=== PATIENT | male | born 1960 ===

== ENCOUNTER 2016-10-18 12:10 | Emergency (ER) | payer MEDICAID ==
[2016-10-18] MEDS ORDERED: Sodium Chloride 0.9% 1,000 ML IV STA (12:42)
--- NOTE | 2016-10-18 12:49 | ED PDOC ---
HPI: Chest Pain Time Seen by Provider: 10/18/16 12:36 Chief Complaint (Nursing): Palpitations Chief Complaint (Provider): Palpitations History Per: Patient History/Exam Limitations: no limitations Onset/Duration Of Symptoms: Days (x3) Current Symptoms Are (Timing): Still Present Additional Complaint(s): Jacqueline Sarmiento is a 56 year old male with no past medical history that presents to the ED with a chief complaint of a mild headache that he has been experiencing for the past three days, as well as mild chest pain and palpitations that began last night. Patient reports that he was partying from Monday through Monday morning, and was drinking a lot of alcohol. He states that he has been unable to sleep for the past three days as well. Patient says that he took two Advils this morning in an attempt to relieve his headache. He denies any breathing problems, nausea, vomiting, diarrhea, suicidal ideation, homicidal ideation, weakness, numbness, or vision change. Past Medical History Reviewed: Historical Data, Nursing Documentation, Vital Signs Vital Signs: Last Vital Signs Temp 98.5 F 10/18/16 12:25 Pulse 74 10/18/16 12:25 Resp 16 10/18/16 12:25 BP 143/88 10/18/16 12:25 Pulse Ox 99 10/18/16 12:54 - Medical History PMH: No Chronic Diseases - Surgical History Surgical History: No Surg Hx - Family History Family History: States: Unknown Family Hx - Social History Drugs: Denies - Allergies Allergies/Adverse Reactions: Allergies Allergy/AdvReac Type Severity Reaction Status Date / Time No Known Allergies Allergy Verified 10/18/16 12:21 Review of Systems ROS Statement: Except As Marked, All Systems Reviewed And Found Negative Constitutional: Positive for: Other (Patient has been unable to sleep for the past three days) Eyes: Negative for: Vision Change Cardiovascular: Positive for: Chest Pain (mild), Palpitations Respiratory: Negative for: Shortness of Breath Gastrointestinal: Negative for: Nausea, Vomiting, Abdominal Pain, Diarrhea Musculoskeletal: Negative for: Leg Pain Neurological: Positive for: Headache (mild). Negative for: Weakness, Numbness Psych: Negative for: Suicidal ideation (denies both suicidal ideation and homicidal ideation ) Physical Exam - Reviewed Nursing Documentation Reviewed: Yes Vital Signs Reviewed: Yes - Physical Exam Appears: Positive for: Non-toxic, No Acute Distress Head Exam: Positive for: ATRAUMATIC, NORMOCEPHALIC Skin: Positive for: Normal Color, Warm Eye Exam: Positive for: Normal appearance, EOMI, PERRL ENT: Positive for: Normal ENT Inspection Neck: Positive for: Normal, Painless ROM, Supple Cardiovascular/Chest: Positive for: Regular Rate, Rhythm. Negative for: Murmur Respiratory: Positive for: Normal Breath Sounds. Negative for: Wheezing Gastrointestinal/Abdominal: Positive for: Normal Exam, Soft. Negative for: Tenderness Back: Positive for: Normal Inspection. Negative for: L CVA Tenderness, R CVA Tenderness Extremity: Positive for: Normal ROM. Negative for: Tenderness, Pedal Edema, Swelling Neurologic/Psych: Positive for: Alert, warehouse production worker II-XII, Oriented. Negative for: Motor/Sensory Deficits - Laboratory Results Result Diagrams: 10/18/16 12:20 10/18/16 13:00 Interpretation Of Abn Labs: 3.5 K - ECG ECG: Positive for: Interpreted By Me, Viewed By Me ECG Rhythm: Positive for: Normal QRS, Normal ST Segment, Sinus Rhythm O2 Sat by Pulse Oximetry: 99 (RA) Pulse Ox Interpretation: Normal - Radiology X-Ray: Read By Radiologist X-Ray Interpretation: No Acute Disease - Progress ED Course And Treament: 1456: Stable. AAOx3. Pain free. Tolerated PO. Fu with pcp. Medical Decision Making Medical Decision Making: Impression: Chest Pain/Headache Plan: * EKG * Chest X-Ray * CBC * CMP * Alcohol * Troponin I * PTT * PT * Urine Drug Screen * Sodium Chloride 1000 mLs at 1000 mLs/hr * Reevaluation Scribe Attestation: Documented by Ivone Su, acting as a scribe for Moisés Langley MD. Provider Scribe Attestation: All medical record entries made by the Scribe were at my direction and personally dictated by me. I have reviewed the chart and agree that the record accurately reflects my personal performance of the history, physical exam, medical decision making, and the department course for this patient. I have also personally directed, reviewed, and agree with the discharge instructions and disposition. Disposition - Clinical Impression Clinical Impression: Insomnia, Chest pain, Alcohol abuse, Hypokalemia - Patient ED Disposition Is Patient to be Admitted: No Counseled Patient/Family Regarding: Studies Performed, Diagnosis, Need For Followup - Disposition Referrals: [facility] [Outside] - 10/19/16 Disposition: Routine/Home Disposition Time: 14:52 Condition: FAIR Additional Instructions: Return if not better in 3 days. Instructions: Chest Pain (ED), Abuse of Alcohol (ED), Palpitations (ED), Insomnia (ED), Hypokalemia (ED) - Pt Status Changed To: Hospital Disposition Of: Inpatient - Admit Certification Admit to Inpatient:: After my assessment, the patient will require hospitalization for at least two midnights. This is because of the severity of symptoms shown, intensity of services needed, and/or the medical risk in this patient being treated as an outpatient. - POA Present On Arrival: None
[2016-10-18 13:32] LABS: BASO # 0.1 K/uL (0.0-0.2); BASO % 1.9 % (0.0-2.0); EOS # 0.1 K/uL (0.0-0.7); HEMOGLOBIN 12.5 g/dL (12.0-18.0); LYMPH # 1.5 K/uL (1.0-4.3); LYMPH % 26.5 % (20.0-40.0); MEAN CELL VOLUME 98.7 fl (80.0-94.0); MEAN CORPUSCULAR HEMOGLOBIN 33.7 pg (27.0-31.0); MEAN CORPUSCULAR HGB CONC 34.2 g/dL (33.0-37.0); MONO # 0.7 K/uL (0.0-0.8); NEUT # 3.2 K/uL (1.8-7.0); NEUT % 56.6 % (50.0-75.0); NRBC % 0.2 % (0.0-0.0); RBC 3.7 Mil/uL (4.40-5.90); RED CELL DISTRIBUTION WIDTH 14.7 % (11.5-14.5); WHITE BLOOD COUNT 5.6 K/uL (4.8-10.8)
--- NOTE | 2016-10-18 13:50 | RAD ---
HISTORY: pain COMPARISON: None available TECHNIQUE: Chest, one view. FINDINGS: Examination limited by habitus. LUNGS: No focal consolidation. Please note that chest x-ray has limited sensitivity for the detection of pulmonary masses. PLEURA: No significant pleural effusion identified. No definite pneumothorax . CARDIOVASCULAR: The cardiomediastinal silhouette appears within normal limits of size. OSSEOUS STRUCTURES: No acute osseous abnormality identified. VISUALIZED UPPER ABDOMEN: Unremarkable. OTHER FINDINGS: None. IMPRESSION: No focal consolidation, significant pleural effusion, or definite pneumothorax identified.
[2016-10-18 13:55] LABS: ALBUMIN 4.7 g/dL (3.5-5.0)
[2016-10-18 13:58] LABS: ALB/GLOB RATIO 1.3 (1.0-2.1); ALT/SGPT 36 U/L (21-72); AST/SGOT 60 U/L (17-59); BLOOD UREA NITROGEN 16 mg/dl (9-20); CALCIUM 10.3 mg/dL (8.4-10.2); GFR AFRICAN-AMERICAN > 60; GFR NON-AFRICAN AMERICAN > 60
[2016-10-18 14:01] LABS: INR 1.2 (0.9-1.2); PARTIAL THROMBOPLASTIN TIME 31.5 Seconds (25.6-37.1); PROTHROMBIN TIME 13.5 Seconds (9.8-13.1)
[2016-10-18] MEDS ORDERED: Potassium Chloride 20 mEq ER Tab PO STA (14:41)
[2016-10-18 15:19] VITALS: BP 126/78; RESP 14; TEMP 98; O2SAT 100
[2016-10-18 15:21] VITALS: PULSE 86
--- NOTE | 2016-10-19 13:48 | CARD ---
APPROVED REPORT EKG Measurement Heart [id number] [place] [id number] [id number] <Conclusion> Normal sinus rhythm Normal ECG
== END 2016-10-18 15:19 | disposition home or self-care (01) ==
LOC: H.ER 12:10
DX: R20.2 Paresthesia of skin (principal); E87.6 Hypokalemia; F10.10 Alcohol abuse, uncomplicated; G47.00 Insomnia, unspecified
CPT/HCPCS: 71010; 80053; 84484; 85025; 85610; 85730; 93005; 99285; G0480; J7040

== ENCOUNTER 2016-12-07 03:49 | Observation (INO) | payer MEDICAID, OTHER ==
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
[2016-12-07 05:36] LABS: BASO # 0.1 K/uL (0.0-0.2); BASO % 0.9 % (0.0-2.0); EOS # 0.1 K/uL (0.0-0.7); EOS % 2.3 % (0.0-4.0); HEMATOCRIT 37.2 % (35.0-51.0); LYMPH # 1.9 K/uL (1.0-4.3); LYMPH % 31.9 % (20.0-40.0); MEAN CELL VOLUME 97.2 fl (80.0-94.0); MEAN CORPUSCULAR HEMOGLOBIN 33.1 pg (27.0-31.0); MEAN PLATELET VOLUME 9.4 fl (7.2-11.7); MONO # 0.7 K/uL (0.0-0.8); MONO % 12.6 % (0.0-10.0); NEUT # 3.1 K/uL (1.8-7.0); NEUT % 52.3 % (50.0-75.0); NRBC % 0.1 % (0.0-0.0); RED CELL DISTRIBUTION WIDTH 13.3 % (11.5-14.5); WHITE BLOOD COUNT 5.8 K/uL (4.8-10.8)
--- NOTE | 2016-12-07 05:54 | ED PDOC ---
- Laboratory Results Result Diagrams: 12/07/16 04:45 12/07/16 04:45 - ECG O2 Sat by Pulse Oximetry: 99 Medical Decision Making Medical Decision Makin Patient signed out to me from LAILA Edwards pending medical clearance and crisis evaluation. 0700 Patient signed out to Dr. Interiano pending crisis evaluation. Scribe Attestation: Documented by Aniya Britton acting as a scribe for Markie Doll MD. Scribe Attestation: All medical record entries made by the Scribe were at my direction and personally dictated by me. I have reviewed the chart and agree that the record accurately reflects my personal performance of the history, physical exam, medical decision making, and the department course for this patient. I have also personally directed, reviewed, and agree with the discharge instructions and disposition. Disposition - Clinical Impression Clinical Impression: Hallucinations - Disposition Disposition: Transfer of Care Disposition Time: 07:00 Condition: STABLE Patient Signed Over To: Halima Sanderson Handoff Comments: Pending crisis evaluation
[2016-12-07 05:58] LABS: ALB/GLOB RATIO 1.3 (1.0-2.1); ALCOHOL SERUM < 10 mg/dl (0-10); ALKALINE PHOSPHATASE 110 U/L (38-126); ALT/SGPT 65 U/L (21-72); AST/SGOT 86 U/L (17-59); BILIRUBIN,TOTAL 1.4 mg/dl (0.2-1.3); BLOOD UREA NITROGEN 24 mg/dl (9-20); CALCIUM 10.5 mg/dL (8.4-10.2); CARBON DIOXIDE 26 mmol/L (22-30); CHLORIDE 96 mmol/L (98-107); GFR AFRICAN-AMERICAN > 60; GLUCOSE,RANDOM 112 mg/dL (75-110); POTASSIUM 3.4 MMOL/L (3.6-5.0); SODIUM 136 mmol/l (132-148); TOTAL PROTEIN 8.4 G/DL (6.3-8.2)
[2016-12-07 06:08] LABS: RBC URINE 1 /hpf (0-3); URINE BACTERIA RARE (<OCC); URINE BILIRUBIN NEGATIVE (NEGATIVE); URINE BLOOD NEGATIVE (NEGATIVE); URINE COLOR AMBER (YELLOW); URINE GLUCOSE (UA) NEG (Normal); URINE KETONE NEGATIVE (NEGATIVE); URINE LEUKOCYTE ESTERASE NEG Leu/uL (Negative); URINE PROTEIN 100 mg/dL (NEGATIVE); WBC URINE 3 /hpf (0-5)
[2016-12-07] MEDS ORDERED: Potassium Chloride 20 mEq ER Tab PO ONE (06:39)
[2016-12-07 07:48] VITALS: TEMP 98.5
[2016-12-07 07:53] LABS: BASO % 0.8 % (0.0-2.0); EOS # 0.1 K/uL (0.0-0.7); EOS % 2.2 % (0.0-4.0); HEMATOCRIT 37.9 % (35.0-51.0); LYMPH % 31.9 % (20.0-40.0); MEAN CELL VOLUME 96.8 fl (80.0-94.0); MEAN CORPUSCULAR HEMOGLOBIN 32.6 pg (27.0-31.0); MEAN CORPUSCULAR HGB CONC 33.7 g/dL (33.0-37.0); MONO # 0.7 K/uL (0.0-0.8); MONO % 11.7 % (0.0-10.0); NEUT # 3.3 K/uL (1.8-7.0); NEUT % 53.4 % (50.0-75.0); RED CELL DISTRIBUTION WIDTH 13.1 % (11.5-14.5); WHITE BLOOD COUNT 6.2 K/uL (4.8-10.8)
--- NOTE | 2016-12-07 08:02 | CARD ---
APPROVED REPORT EKG Measurement Heart [id number] [place] [id number] <Conclusion> Normal sinus rhythm Normal ECG
[2016-12-07 08:03] LABS: BLOOD UREA NITROGEN 22 mg/dl (9-20); CALCIUM 10.2 mg/dL (8.4-10.2); CARBON DIOXIDE 26 mmol/L (22-30); CHLORIDE 96 mmol/L (98-107); GFR AFRICAN-AMERICAN > 60; GLUCOSE,RANDOM 126 mg/dL (75-110); POTASSIUM 3.7 MMOL/L (3.6-5.0); SODIUM 135 mmol/l (132-148)
[2016-12-07] MEDS ORDERED: Sodium Chloride 0.9% 1,000 ML IV STA (08:35)
[2016-12-07 09:24] LABS: PARTIAL THROMBOPLASTIN TIME 30.3 Seconds (25.6-37.1)
[2016-12-07 10:47] VITALS: PULSE 97; RESP 14; O2SAT 99
[2016-12-07 10:50] VITALS: BP 135/93
--- NOTE | 2016-12-07 11:57 | RAD ---
HISTORY: Thanks chest pain. COMPARISON: 10/18/2016 TECHNIQUE: Chest PA and lateral FINDINGS: LUNGS: No active pulmonary disease. PLEURA: No significant pleural effusion identified. No pneumothorax apparent. CARDIOVASCULAR: No radiographic findings to suggest acute or significant cardiovascular disease. OSSEOUS STRUCTURES: No significant abnormalities. VISUALIZED UPPER ABDOMEN: Normal. OTHER FINDINGS: None. IMPRESSION: No active disease. No significant interval change compared to the prior examination(s). No preliminary report provided by emergency department personnel.
== END 2016-12-07 13:40 | disposition left against medical advice (07) ==
LOC: H.ER 03:49 → H.EROBSV 09:09
PROVIDERS: ADMIT Emergency Medicine; ATTEND Emergency Medicine
DX: R44.3 Hallucinations, unspecified (principal)
CPT/HCPCS: 71020; 80053; 80320; 80324; 80345; 80346; 80349; 80353; 80358; 80361; 81003; 83992; 84484; 85025; 85378; 85610; 85730; 93005; 96360; 99285; G0378; J7040

== ENCOUNTER 2017-05-15 05:04 | Emergency (ER) | payer MEDICAID ==
[2017-05-15 05:16] VITALS: TEMP 98.1
[2017-05-15] MEDS ORDERED: Bacitracin OINT 15GM TOP STA (05:23)
[2017-05-15] MEDS ORDERED: Bacitracin Ointment 30 GM TUBE ONE (05:28)
[2017-05-15 06:03] VITALS: BP 150/101; PULSE 101; RESP 18; O2SAT 97
--- NOTE | 2017-05-15 06:16 | ED PDOC ---
Lower Extremity Pain/Injury Time Seen by Provider: 05/15/17 05:13 Chief Complaint (Nursing): Lower Extremity Problem/Injury Chief Complaint (Provider): Foot Pain History Per: Patient History/Exam Limitations: no limitations Onset/Duration Of Symptoms: Days (x2) Current Symptoms Are (Timing): Still Present Additional Complaint(s): 57 year old male presents to ED with complaints of bilateral foot pain x2 days and has a past medical history of HTN. Patient states that [place] is [place] [facility] Notes that the shoes given to him are too small and he has no socks, causing his feet to hurt. Reports abrasions to his feet and requests socks. (-) fever. PCP: None Past Medical History Reviewed: Historical Data, Nursing Documentation, Vital Signs Vital Signs: Last Vital Signs Temp 98.1 F 05/15/17 05:14 Pulse 101 H 05/15/17 06:03 Resp 18 05/15/17 06:03 BP 150/101 H 05/15/17 06:03 Pulse Ox 97 05/15/17 06:03 - Medical History PMH: HTN - Family History Family History: States: Unknown Family Hx - Living Arrangements Living Arrangements: Other (Homeless) - Allergies Allergies/Adverse Reactions: Allergies Allergy/AdvReac Type Severity Reaction Status Date / Time No Known Allergies Allergy Verified 05/15/17 05:13 Review of Systems ROS Statement: Except As Marked, All Systems Reviewed And Found Negative Constitutional: Negative for: Fever Musculoskeletal: Positive for: Foot Pain (bilateral) Physical Exam - Reviewed Nursing Documentation Reviewed: Yes Vital Signs Reviewed: Yes - Physical Exam Appears: Positive for: Non-toxic, No Acute Distress (hypertensive) Skin: Positive for: Normal Color, Warm, Dry Respiratory: Negative for: Respiratory Distress Extremity: Positive for: Normal ROM, Other (mild abrasions to bilateral feet). Negative for: Deformity - ECG O2 Sat by Pulse Oximetry: 97 (RA) Pulse Ox Interpretation: Normal Medical Decision Making Medical Decision Makin Initial impression: bilateral foot pain Initial plan: * Bacitracin ointment 1 applic TOP * Catapres 0.2mg PO * Acetaminophen 650mg PO * Re-eval Scribe Attestation: Documented by Aniya Britton acting as a scribe for Demetrio Echevarria MD. DO Scribe Attestation: All medical record entries made by the Scribe were at my direction and personally dictated by me. I have reviewed the chart and agree that the record accurately reflects my personal performance of the history, physical exam, medical decision making, and the department course for this patient. I have also personally directed, reviewed, and agree with the discharge instructions and disposition. Disposition - Clinical Impression Clinical Impression: Foot abrasion - Disposition Disposition: Routine/Home Disposition Time: 06:00 Condition: STABLE Instructions: Skin Abrasions Forms: [employer] ([employer])
== END 2017-05-15 07:20 | disposition home or self-care (01) ==
LOC: H.ER 05:04
DX: S90.819A Abrasion, unspecified foot, initial encounter (principal); Y92.89 Other specified places as the place of occurrence of the external cause; I10 Essential (primary) hypertension; Z59.0 Homelessness

== ENCOUNTER 2017-06-26 20:27 | Emergency (ER) | payer MEDICAID, OTHER ==
[2017-06-26 20:45] VITALS: RESP 18; O2SAT 99
--- NOTE | 2017-06-26 22:30 | ED PDOC ---
HPI: Abdomen Time Seen by Provider: 06/26/17 21:15 Chief Complaint (Nursing): GI Problem History Per: Patient History/Exam Limitations: no limitations Onset/Duration Of Symptoms: Other (x 1 week) Current Symptoms Are (Timing): Still Present Additional Complaint(s): Mr. Powell is a 57 year old male who presents to the ED complaining of left- sided body pain (left side of the chest, abdominal and shoulder) for approximately 1 week and constipation for 5 days. Patient reports pain is present most of the time. Pain is worse when moving body, laying down and moving left arm and shoulder. Denies any chest pain, difficulty breathing, fevers, diarrhea, abdominal pain, vomiting, headache dizziness. Patient states no bowel movements for 5 days, but reports passes plenty of gas. PMD: Provider TBD Past Medical History Reviewed: Historical Data, Nursing Documentation, Vital Signs Vital Signs: Last Vital Signs Temp 98.5 F 06/26/17 20:42 Pulse 94 H 06/26/17 20:42 Resp 18 06/26/17 20:42 BP 142/90 06/26/17 20:42 Pulse Ox 99 06/26/17 22:36 - Medical History PMH: HTN - Surgical History Surgical History: No Surg Hx - Family History Family History: States: Unknown Family Hx - Home Medications Home Medications: Ambulatory Orders Medication Instructions Recorded Cyclobenzaprine [Cyclobenzaprine 10 mg PO TID PRN #15 tab 06/26/17 HCl] Naproxen 500 mg PO BID #20 tablet 06/26/17 - Allergies Allergies/Adverse Reactions: Allergies Allergy/AdvReac Type Severity Reaction Status Date / Time No Known Allergies Allergy Verified 05/15/17 05:13 Review of Systems ROS Statement: Except As Marked, All Systems Reviewed And Found Negative Constitutional: Negative for: Fever Cardiovascular: Negative for: Chest Pain Respiratory: Negative for: Other (difficulty breathing) Gastrointestinal: Negative for: Vomiting, Abdominal Pain, Diarrhea Musculoskeletal: Positive for: Other (left-sided body pain) Neurological: Negative for: Headache, Dizziness Physical Exam - Reviewed Nursing Documentation Reviewed: Yes Vital Signs Reviewed: Yes - Physical Exam Appears: Positive for: Well (Comfortable) Head Exam: Positive for: ATRAUMATIC, NORMAL INSPECTION, NORMOCEPHALIC Skin: Positive for: Normal Color, Warm, Dry Eye Exam: Positive for: Normal appearance, EOMI, PERRL ENT: Positive for: Normal ENT Inspection Neck: Positive for: Normal Cardiovascular/Chest: Positive for: Regular Rate, Rhythm, Other (Left wall chest tenderness) Respiratory: Positive for: Normal Breath Sounds. Negative for: Respiratory Distress Gastrointestinal/Abdominal: Positive for: Normal Exam Back: Positive for: Other (Left lower back tendenress) Extremity: Positive for: Normal ROM (Full), Other (Pain in left shoulder with ROM). Negative for: Deformity, Swelling Neurologic/Psych: Positive for: Alert, Oriented (x 3) - Laboratory Results Result Diagrams: 06/26/17 22:25 06/26/17 22:25 - ECG O2 Sat by Pulse Oximetry: 99 (RA) - Radiology X-Ray: Interpreted by Me, Viewed By Me X-Ray Interpretation: No Acute Disease - Other Rad Abdomen xray X-Ray: Interpreted by Me, Viewed By Me X-Ray Interpretation: no acute findings Medical Decision Making Medical Decision Making: Time: 21:35 Impression(s): Left-sided body pain, constipation Differentials include, but not limited to: constipation, musculoskeletal pain, Plan: - BMP - ED Urine Dipstick (POC) - CBC - Chest X-Ray - Portable Chest X-Ray - Flexeril 10 mg PO STAT - Toradol 30 mg IVP - Abdomen {Flat Plate} X-Ray Scribe Attestation: Documented by Ad Navarro, acting as a scribe for Vandana Earl MD. Provider Scribe Attestation: All medical record entries made by the Scribe were at my direction and personally dictated by me. I have reviewed the chart and agree that the record accurately reflects my personal performance of the history, physical exam, medical decision making, and the department course for this patient. I have also personally directed, reviewed, and agree with the discharge instructions and disposition. Disposition - Clinical Impression Clinical Impression: Pain of left side of body, Constipation - Patient ED Disposition Is Patient to be Admitted: No Doctor Will See Patient In The: Office Counseled Patient/Family Regarding: Studies Performed, Diagnosis, Need For Followup - Disposition Referrals: [facility] [Outside] Disposition: Routine/Home Disposition Time: 23:39 Condition: GOOD Additional Instructions: Take your medications as instructed. Follow up with your PCP in 2-3 days. Prescriptions: Cyclobenzaprine [Cyclobenzaprine HCl] 10 mg PO TID PRN #15 tab PRN Reason: Muscle Spasm Naproxen 500 mg PO BID #20 tablet Instructions: Constipation in Adults, Muscle and Bone Pain (DC)
[2017-06-26 22:31] LABS: BASO # 0.1 K/uL (0.0-0.2); BASO % 0.8 % (0.0-2.0); EOS # 0.1 K/uL (0.0-0.7); EOS % 2.1 % (0.0-4.0); HEMOGLOBIN 11.5 g/dL (12.0-18.0); LYMPH % 29.8 % (20.0-40.0); MEAN CELL VOLUME 97.2 fl (80.0-94.0); MEAN CORPUSCULAR HEMOGLOBIN 33.1 pg (27.0-31.0); MEAN CORPUSCULAR HGB CONC 34.1 g/dL (33.0-37.0); MEAN PLATELET VOLUME 7.9 fl (7.2-11.7); MONO # 0.8 K/uL (0.0-0.8); MONO % 12.5 % (0.0-10.0); NEUT # 3.7 K/uL (1.8-7.0); NEUT % 54.8 % (50.0-75.0); RBC 3.48 Mil/uL (4.40-5.90); RED CELL DISTRIBUTION WIDTH 13.7 % (11.5-14.5); WHITE BLOOD COUNT 6.7 K/uL (4.8-10.8)
[2017-06-26 22:39] LABS: BLOOD UREA NITROGEN 15 mg/dl (9-20); CALCIUM 9.3 mg/dL (8.4-10.2); GFR AFRICAN-AMERICAN > 60; GFR NON-AFRICAN AMERICAN > 60
[2017-06-27 00:10] VITALS: BP 128/81; PULSE 88; TEMP 98
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
--- NOTE | 2017-06-27 11:45 | RAD ---
HISTORY: Abdominal pain and constipation COMPARISON: No prior. FINDINGS: BOWEL: There is large amount of stool in the colon and rectum. The bowel gas pattern is nonspecific. BONES: Within normal limits for the patient's age. OTHER FINDINGS: None. IMPRESSION: Constipation. Nonobstructive bowel-gas pattern.
== END 2017-06-27 00:11 | disposition home or self-care (01) ==
LOC: H.ER 20:27
DX: K59.00 Constipation, unspecified (principal); M79.1 Myalgia; J90 Pleural effusion, not elsewhere classified; I10 Essential (primary) hypertension
CPT/HCPCS: 71045; 74018; 80048; 85025; 96374; 99283; J1885

== ENCOUNTER 2017-11-05 16:25 | Emergency (ER) | payer OTHER ==
[2017-11-05 16:42] VITALS: BP 148/91; PULSE 89; RESP 20; TEMP 98.3; O2SAT 100
--- NOTE | 2017-11-05 16:55 | ED PDOC ---
Lower Extremity Pain/Injury Time Seen by Provider: 11/05/17 16:41 Chief Complaint (Nursing): Lower Extremity Problem/Injury Chief Complaint (Provider): bilateral foot pain History Per: Patient History/Exam Limitations: no limitations Onset/Duration Of Symptoms: Gradual Current Symptoms Are (Timing): Still Present Additional Complaint(s): 57-year-old male presenting for evaluation of gradual onset bilateral foot pain. 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 He denies any recent falls or trauma. Patient also reports he went camping recently and has a lot of itchy insect bites on his arms. Past Medical History Reviewed: Historical Data, Nursing Documentation, Vital Signs Vital Signs: Last Vital Signs Temp 98.3 F 11/05/17 16:30 Pulse 89 11/05/17 16:30 Resp 20 11/05/17 16:30 BP 148/91 H 11/05/17 16:30 Pulse Ox 100 11/05/17 16:30 - Medical History PMH: HTN - Surgical History Surgical History: No Surg Hx - Family History Family History: States: Unknown Family Hx - Home Medications Home Medications: Ambulatory Orders Medication Instructions Recorded Cyclobenzaprine [Cyclobenzaprine 10 mg PO TID PRN #15 tab 06/26/17 HCl] Naproxen 500 mg PO BID #20 tablet 06/26/17 Polyethylene Glycol 3350 [Miralax] 17 gm PO DAILY #5 packet 06/26/17 Hydrocortisone 1% Cream [Cortizone 30 applic TOP BID #1 tube 11/05/17 1% Cream] Naproxen [Naprosyn] 500 mg PO BID PRN #20 tablet 11/05/17 - Allergies Allergies/Adverse Reactions: Allergies Allergy/AdvReac Type Severity Reaction Status Date / Time No Known Allergies Allergy Verified 11/05/17 16:30 Review of Systems ROS Statement: Except As Marked, All Systems Reviewed And Found Negative Musculoskeletal: Positive for: Foot Pain (bilateral) Skin: Positive for: Other (multiple insect bites to bilateral arms) Physical Exam - Reviewed Nursing Documentation Reviewed: Yes Vital Signs Reviewed: Yes - Physical Exam Appears: Positive for: Non-toxic, No Acute Distress Head Exam: Positive for: ATRAUMATIC Skin: Positive for: Normal Color, Warm Eye Exam: Positive for: Normal appearance Neck: Positive for: Normal Respiratory: Negative for: Respiratory Distress Extremity: Positive for: Other (calluses to balls of bilateral feet; insect bites to bilateral arms) Neurologic/Psych: Positive for: Alert - ECG O2 Sat by Pulse Oximetry: 100 (RA) Pulse Ox Interpretation: Normal Medical Decision Making Medical Decision Making: Plan: Offered patient pain medication in ER, but patient declined medication. Will discharge with prescriptions for Hydrocortisone cream and Naproxen. Scribe Attestation: Documented by Onel Sanchez, acting as a scribe for Risa Crawley PA-C. Provider Scribe Attestation: All medical record entries made by the scribe were at my direction and personally dictated by me. I have reviewed the chart and agree that the record accurately reflects my personal performance of the history, physical exam, medical decision making, and the department course for this patient. I have also personally directed, reviewed, and agree with the discharge instructions and disposition. Disposition - Clinical Impression Clinical Impression: Foot pain, Insect bite - Patient ED Disposition Is Patient to be Admitted: No Counseled Patient/Family Regarding: Diagnosis, Need For Followup, Rx Given - Disposition [facility]errals[facility] [Outside] Disposition: Routine/Home Disposition Time: 16:53 Condition: GOOD Prescriptions: Hydrocortisone 1% Cream [Cortizone 1% Cream] 30 applic TOP BID #1 tube Naproxen [Naprosyn] 500 mg PO BID PRN #20 tablet PRN Reason: Pain Instructions: Muscle and Bone Pain (DC) Forms: [employer] (Sinhala) Print Language: GUINEAN
== END 2017-11-05 18:06 | disposition home or self-care (01) ==
LOC: H.ER 16:25
DX: M79.673 Pain in unspecified foot (principal); S40.869A Insect bite (nonvenomous) of unspecified upper arm, initial encounter; W57.XXXA Bitten or stung by nonvenomous insect and other nonvenomous arthropods, initial encounter; Y92.89 Other specified places as the place of occurrence of the external cause; I10 Essential (primary) hypertension